=== PATIENT | female | born 1940 | race Two or more races ===

== ENCOUNTER 2019-03-28 09:33 | Emergency (ER) | payer OTHER ==
[~2019-03-28] VITALS: Ht 154.9 cm; Wt 72.6 kg
[~2019-03-28 09:33] MED LIST: APIDRA100 U/M1; ASPIR 8181 MG; CEFADROXIL500 MG PO; LEVEMIR100 U/ML; NABUMETONE750 MG PO; PROTONIX40 MG; ZETIA10 MG
== END 2019-03-28 12:48 | disposition home or self-care (01) ==
LOC: ER 09:33
DX: S92.512A Displaced fracture of proximal phalanx of left lesser toe(s), initial encounter for closed fracture (principal); W22.01XA Walked into wall, initial encounter; Y93.89 Activity, other specified; Y92.89 Other specified places as the place of occurrence of the external cause; Y99.8 Other external cause status

== ENCOUNTER → 2020-03-11 | Outpatient (CLI) | payer OTHER | END | disposition home or self-care (01) | LOC: OFIC 805 10:30 | PROVIDERS: ATTEND Otolaryngology | DX: H90.3 Sensorineural hearing loss, bilateral (principal); H68.103 Unspecified obstruction of Eustachian tube, bilateral; H61.23 Impacted cerumen, bilateral ==

== ENCOUNTER 2022-06-14 11:30 | Emergency (ER) | payer OTHER ==
[~2022-06-14] VITALS: Ht 154.9 cm; Wt 54.0 kg
== END 2022-06-14 17:07 | disposition home or self-care (01) ==
LOC: ER 11:30
DX: K52.9 Noninfective gastroenteritis and colitis, unspecified (principal); Z91.040 Latex allergy status; Z88.0 Allergy status to penicillin; Z91.013 Allergy to seafood; Z91.018 Allergy to other foods; Z20.822 Contact with and (suspected) exposure to COVID-19